=== PATIENT | male | born 1975 | race Caucasian/White ===

== ENCOUNTER 2016-12-06 14:34 | Emergency (ER) | payer SELFPAY ==
--- NOTE | 2016-12-06 14:40 | ER Document Report ---
ED Medical Screen (RME) - General Stated Complaint: RIGHT BREAST SWELLING Mode of Arrival: Ambulatory Information source: Patient Notes: Patient presents to the emergency department with right breast swelling. Reports history of mastitis in the right breast in September. No drainage. No fever/vomiting. TRAVEL OUTSIDE OF THE [place] IN LAST 30 DAYS: No - Related Data Allergies/Adverse Reactions: No Known Allergies Allergy (Verified 10/14/16 19:20) Past Medical History Past Surgical History: Reports: Hx Orthopedic Surgery - Right elbow - Immunizations Hx Diphtheria, Pertussis, Tetanus Vaccination: Yes - 2003
--- NOTE | 2016-12-06 15:47 | ER Document Report ---
Addendum entered and electronically signed by VENKAT MCDANIEL NP 12/06/16 20:54 : Course - Re-evaluation Re-evalutation: 12/06/16 20:53 pt care was never transferred to [facility] - Vital Signs Vital signs: Temp Pulse Resp BP Pulse Ox 98.1 F 74 18 131/73 H 97 12/06/16 14:39 12/06/16 14:39 12/06/16 14:39 12/06/16 14:39 12/06/16 20:47 - Laboratory Result Diagrams: 12/06/16 18:37 12/06/16 18:37 Laboratory results interpreted by me: 12/06/16 18:37 AST 75 H ALT 77 H Addendum entered and electronically signed by VENKAT MCDANIEL NP 12/06/16 20:51 : Discharge - Discharge Clinical Impression: right chest wall mass, erosion of fifth rib cartilage Condition: Stable Disposition: AGAINST MEDICAL ADVICE Instructions: Growth or Mass, Pending Workup ([facility]), Clindamycin ([facility]) Additional Instructions: go directly to [facility] ER tomorrow as you are planning with your chart and imaging on CD. return to our ER if you change your mind about the transfer to [facility] and admission. Prescriptions: Clindamycin HCl [Cleocin 150 mg Capsule] 300 mg PO TID #42 capsule Original Note: HPI - HPI Patient complains to provider of: right breast swelling Onset: Other - September Onset/Duration: Persistent, Worse Pain Level: 5 Context: 41-year-old smoker male was treated with antibiotics on October 14 for right breast erythema and swelling. The ultrasound showed no fluid collection. Was tx with septra and keflex and he stated the red area resolved, but continued to have indurated chest/breast tissue which has gotten larger since. He did not follow-up in the emergency department or see the general surgeon which was recommended. He comes back today because the indurated firm area is larger and he has a red tender area for 2 days that has recurred. No fever or chills. No history of MRSA. Denies IV drug use. Pt feels like it is pressing on his lungs. Associated Symptoms: None Exacerbated by: Movement - chest muscle Relieved by: Denies Similar symptoms previously: Yes Recently seen / treated by doctor: No - ROS ROS below otherwise negative: Yes Systems Reviewed and Negative: Yes All other systems reviewed and negative - DERM Skin Color: Normal <VENKAT MCDANIEL - Last Filed: 12/06/16 20:38> Past Medical History - General Information source: Patient - Social History Smoking Status: Current Every Day Smoker Chew tobacco use (# tins/day): No Frequency of alcohol use: None Drug Abuse: None Lives with: Family Family History: Reviewed & Not Pertinent Patient has suicidal ideation: No Patient has homicidal ideation: No - Medical History Medical History: Negative Past Surgical History: Reports: Hx Orthopedic Surgery - Right elbow - Immunizations Hx Diphtheria, Pertussis, Tetanus Vaccination: Yes - 2003 <VENKAT MCDANIEL - Last Filed: 12/06/16 20:38> Vertical Provider Document - CONSTITUTIONAL Agree With Documented VS: Yes Exam Limitations: No Limitations General Appearance: No Apparent Distress - INFECTION CONTROL TRAVEL OUTSIDE OF THE [place] IN LAST 30 DAYS: No - HEENT HEENT: Normocephalic - NECK Neck: Supple - RESPIRATORY Respiratory: Breath Sounds Normal, No Respiratory Distress O2 Sat by Pulse Oximetry: 97 - CARDIOVASCULAR Cardiovascular: Regular Rate, Regular Rhythm - GI/ABDOMEN Gastrointestinal: Abdomen Soft, Abdomen Non-Tender, No Organomegaly - BACK Back: Normal Inspection - MUSCULOSKELETAL/EXTREMETIES Musculoskeletal/Extremeties: KELLY FELTON - NEURO Level of Consciousness: Awake, Alert - DERM Adult Front & Back Diagram: 1 - induation 6 x 5 cm, red area inferior medial right breast 2 cm. Notes: 5 x 6 cm induration with 2 cm erythema inferior medial right breast/chest. <VENKAT MCDANIEL - Last Filed: 12/06/16 20:38> Course - Re-evaluation Re-evalutation: 12/06/16 16:[address] Medeiros who states it is okay to get a percent of the right breast. I also spoke to the radiologist Dr. Atkinson to look to the last ultrasound wanted to start with an ultrasound today. 12/06/16 17:36 dr gerber called and recommends an IV contrast CT of the chest with special attention to the pectoral muscle because she is concerned of extension sub Q abscess into the muscle. Consult with Dr. Manjarrez at this time who agrees with the CT scan. 12/06/16 19:[address] Naidu who recommends transfer to a tertiary center for cardiothoracic surgeon as indicated by the radiologist. The CT scan shows pleural thickening, 7 x 8 x 4 soft tissue fullness involving the pectoralis musculature as well as the anterior costochondral cartilage of anterior fifth rib with erosive changes of the cartilage. No defined abscess is identified. The ultrasound did show a 2.3 cm subcutaneous abscess with possible extension into the pectoral muscle. Call to light and in [place] for thoracic surgery consult. 12/06/16 19:40 Dr. Alex thoracic surgeon [facility] after discussion of the patient recommends IV clindamycin and medical admit with a surgical consult. She does not feel that he will need thoracic surgery based on the interpretation of the CT scan although she hasn't seen the films. 12/06/16 19:50 Dr. Garibay will accept the patient for admission and to the medical hospitalist invited to [place]. They will not have a bed available until tomorrow afternoon. 12/06/16 20:10 Dr. Fa[address]ner and Dr. Naidu were consulted and Dr. Bah is willing to look at the ultrasound and CT and go see the patient, he is seeing the patient at this time. 12/06/16 20:38 1 kg weight loss since 10-14. Dr. Naidu reccomends his transfer as discussed to [facility]. He advised to the pt that the recommended medical treatment is to be transferred to [facility] to be admitted by medicine dr. arenas with a [facility] thoracic surgical consult. He understands the risks of not being transferred and the possibility of not being admitted because he will have to go through the emergency department they want to sign out AGAINST MEDICAL ADVICE which Dr. Naidu adn dr. faulkner is aware of. I will give the patient copies of his records and imaging on CD because they state they will drive to [facility] ER tomorrow. Dr faulkner is talking with the pt at this time. - Vital Signs Vital signs: Temp Pulse Resp BP Pulse Ox 98.1 F 74 18 131/73 H 97 12/06/16 14:39 12/06/16 14:39 12/06/16 14:39 12/06/16 14:39 12/06/16 14:39 - Laboratory Result Diagrams: 12/06/16 18:37 12/06/16 18:37 - Transfer of Care Care transferred to following provider: Megan ZAPATA at 2014 <VENKAT MCDANIEL - Last Filed: 12/06/16 20:38> - Re-evaluation Re-evalutation: 12/06/16 20:49 I have seen and spoken with both the patient and his . They do not want to stay any longer in the emergency room. They are willing to wait for the end of the antibiotics. We have explained to them desire to transfer them for surgical evaluation in [place]. They say that they will drive up themselves tomorrow. We will give them a copy of all the labs, CT report and ultrasound. I have told them they're welcome to return to the emergency room for any further problems. - Vital Signs Vital signs: Temp Pulse Resp BP Pulse Ox 98.1 F 74 18 131/73 H 97 12/06/16 14:39 12/06/16 14:39 12/06/16 14:39 12/06/16 14:39 12/06/16 20:47 - Laboratory Result Diagrams: 12/06/16 18:37 12/06/16 18:37 Laboratory results interpreted by me: 12/06/16 18:37 AST 75 H ALT 77 H <MAYLIN FAULKNER - Last Filed: 12/06/16 20:50> Discharge <VENKAT MCDANIEL - Last Filed: 12/06/16 20:38> <MAYLIN FAULKNER - Last Filed: 12/06/16 20:50> - Discharge Clinical Impression: right chest wall mass, erosion of fifth rib cartilage Condition: Stable Disposition: AGAINST MEDICAL ADVICE Instructions: Growth or Mass, Pending Workup ([facility]) Additional Instructions: go directly to [facility] ER tomorrow as you are planning with your chart and imaging on CD. return to our ER if you change your mind about the transfer to [facility] and admission.
[2016-12-06 18:59] LABS: ABSOLUTE BASOPHILS # (AUTO) 0.1 10^3/uL (0.0-0.2); ABSOLUTE EOSINOPHILS # (AUTO) 0.3 10^3/uL (0.0-0.6); ABSOLUTE LYMPHOCYTES (AUTO) 2.1 10^3/uL (0.5-4.7); ABSOLUTE MONOCYTES (AUTO) 0.7 10^3/uL (0.1-1.4); ABSOLUTE NEUT (AUTO) 4.1 10^3/uL (1.7-8.2); BASOPHILS % (AUTO) 0.7 % (0-2); EOSINOPHILS % (AUTO) 3.7 % (0-6); HEMATOCRIT 48.5 % (37.9-51.0); HEMOGLOBIN 16.1 g/dL (13.5-17.0); HGB HCT DIFFERENCE -0.2; LYMPHOCYTES % (AUTO) 28.6 % (13-45); MEAN CORPUSCULAR HEMOGLOBIN 31.2 pg (27.0-33.4); MEAN CORPUSCULAR HGB CONC 33.2 g/dL (32.0-36.0); MEAN CORPUSCULAR VOLUME 94 fl (80-97); MONOCYTES % (AUTO) 10.3 % (3-13); RED BLOOD COUNT 5.18 10^6/uL (4.35-5.55); RED CELL DISTRIBUTION WIDTH 13.3 % (11.5-14.0); SEGMENTED NEUTROPHILS % (AUTO) 56.7 % (42-78); WHITE BLOOD COUNT 7.3 10^3/uL (4.0-10.5)
[2016-12-06 19:25] LABS: ALANINE AMINOTRANSFERASE 77 U/L (21-72); ALBUMIN 3.9 g/dL (3.5-5.0); ALKALINE PHOSPHATASE 81 U/L (38-126); ANION GAP 10 (5-19); ASPARTATE AMINO TRANSFERASE 75 U/L (17-59); BILIRUBIN,TOTAL 0.9 mg/dL (0.2-1.3); BLOOD UREA NITROGEN 8 mg/dL (7-20); CALCIUM 9.3 mg/dL (8.4-10.2); CARBON DIOXIDE 30 mmol/L (22-30); CHLORIDE 100 mmol/L (98-107); CREATININE RESULT 0.84 mg/dL (0.52-1.25); GLUCOSE 94 mg/dL (75-110); POTASSIUM 4.2 mmol/L (3.6-5.0); SODIUM 140.3 mmol/L (137-145)
[2016-12-06] MEDS ORDERED: CLINDAMYCIN 600 MG/D5W RTU 50 ML IV ONE (19:38)
[2016-12-06 21:05] VITALS: BP 132/68
--- NOTE | 2016-12-06 22:13 | PDOC CONSULTATION ---
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 The patient reports he was seen in September for right breast swelling. Imaging in September did not show any fluid collection. At that time he denies any redness, but his believes there may have been some redness. He was given antibiotics and instructed to follow-up in the ER in 2 days, as well as in 2 weeks with general surgery clinic. He neither followed up in the ER now or in general surgery clinic. He reports he did not follow-up for financial reasons. He reports that the area of swelling decreased in size following his ER visit September, getting as small as a golf ball. He reports that the area has increased in size and has patchy redness over it. He denies any drainage or discharge. He reports pain with direct palpation and pain when raising his right arm over his head. He reports that deep breathing causes chest pain, but he is not short of breath per se. He reports the area is very firm. He denies fevers, chills, nausea, vomiting, seizures, tremors, dizziness , lightheadedness, vision changes, sinus congestion, cough, leg swelling, itching, bowel changes. He denies any significant weight loss. Review of his weight compared to September reveals a 1 kg weight loss. He denies IV drug use. Past Medical History Psychiatric Medical History: Reports: Tobacco Dependency Past Surgical History Past Surgical History: Reports: Orthopedic Surgery - Right elbow Social History Lives with: Family Smoking Status: Current Every Day Smoker Frequency of Alcohol Use: None Drugs: None Hx Prescription Drug Abuse: No Family History Family History: Reviewed & Not Pertinent Parental Family History Reviewed: No Children Family History Reviewed: No Sibling(s) Family History Reviewed.: No Medication/Allergy Home Medications: No Home Medications 1 02/01/12 Cephalexin Monohydrate [Keflex 500 mg Capsule] 500 mg PO QID #28 capsule Oxycodone HCl/Acetaminophen [Percocet 5-325 mg Tablet] 1 - 2 tab PO ASDIR PRN # 15 tablet 10/14/16 Sulfamethoxazole/Trimethoprim [Sulfamethoxazole-Tmp Ds Tablet] 1 each PO BID # 14 tablet 10/14/16 Clindamycin HCl [Cleocin 150 mg Capsule] 300 mg PO TID #42 capsule 12/06/16 Allergies/Adverse Reactions: No Known Allergies Allergy (Verified 12/06/16 14:38) Review of Systems All systems: reviewed and no additional remarkable complaints except as stated Physical Exam Vital Signs: Temp Pulse Resp BP Pulse Ox 98 F 78 16 132/68 H 97 12/06/16 20:45 12/06/16 20:45 12/06/16 20:45 12/06/16 20:45 12/06/16 20:47 Intake & Output 12/05/16 12/06/16 12/07/16 06:59 06:59 06:59 Weight 71.2 kg General appearance: PRESENT: no acute distress Head exam: PRESENT: normocephalic Eye exam: PRESENT: EOMI Mouth exam: PRESENT: tongue midline Neck exam: ABSENT: JVD, lymphadenopathy, tenderness, thyromegaly Respiratory exam: PRESENT: clear to auscultation pallavi, other - The patient has a very firm right breast/chest wall mass approximately 6 cm in widest dimension. It is tender to palpate as is the surrounding chest wall. The soft tissue of the breast underlying the nipple areolar complex does not seem involved and feels to be distinct from this mass. There is patchy nonblanching erythema over the area. There is no discernible fluctuance or abscess by my exam. He has one enlarged palpable, mobile lymph node in the right axilla. Cardiovascular exam: PRESENT: RRR GI/Abdominal exam: PRESENT: soft. ABSENT: distended, tenderness Extremities exam: ABSENT: pedal edema, tenderness Neurological exam: PRESENT: alert, oriented to person, oriented to place, oriented to time, oriented to situation Psychiatric exam: PRESENT: appropriate affect, normal mood Skin exam: ABSENT: jaundice Results Laboratory Results: 12/06/16 18:37 12/06/16 18:37 12/06/16 12/06/16 12/06/16 08:50 18:37 18:37 WBC 7.3 RBC 5.18 Hgb 16.1 Hct 48.5 MCV 94 MCH 31.2 MCHC 33.2 RDW 13.3 Plt Count 240 Seg Neutrophils % 56.7 Lymphocytes % 28.6 Monocytes % 10.3 Eosinophils % 3.7 Basophils % 0.7 Absolute Neutrophils 4.1 Absolute Lymphocytes 2.1 Absolute Monocytes 0.7 Absolute Eosinophils 0.3 Absolute Basophils 0.1 Sodium Cancelled 140.3 Potassium Cancelled 4.2 Chloride Cancelled 100 Carbon Dioxide Cancelled 30 Anion Gap Cancelled 10 BUN Cancelled 8 Creatinine Cancelled 0.84 Est GFR ( Amer) Cancelled > 60 Est GFR (Non-Af Amer) Cancelled > 60 Glucose Cancelled 94 Calcium Cancelled 9.3 Total Bilirubin 0.9 AST 75 H ALT 77 H Alkaline Phosphatase 81 Total Protein 8.0 Albumin 3.9 Impressions: Chest X-Ray 12/06/16 16:12 IMPRESSION: NO SIGNIFICANT RADIOGRAPHIC FINDING IN THE CHEST. Chest CT 12/06/16 17:34 IMPRESSION: There is thickening of the right anterior pleura adjacent to a 7 x 8.5 x 4.2 cm area of soft tissue fullness and inflammatory changes involving the pectoralis musculature as well as the anterior costochondral cartilage of the anterior 5th rib, there are erosive changes of the cartilage. No defined rim enhancing abscess is identified. Consultation with cardiothoracic surgery is recommended. Status: Image reviewed by me Assessment & Plan - Diagnosis (1) Mass of right chest wall Is this a current diagnosis for this admission?: YesPlan: The patient has a very firm right chest wall mass. There is no discernible fluctuance or abscess by my exam. He has a normal white count without any left shift. He does not have fevers or chills. The area of erythema is minimal. He has a palpable lymph node in his right axilla. All these factors lead me for more concern for a neoplastic process then an infectious process. The ultrasound was questionable for an abscess, but the CT scan failed to identify any abscess and showed an erosive process involving the costochondral cartilage. Given the complexity of the situation with extension to the chest wall, I recommend cardiothoracic surgery consult. Transfer was facilitated by the ED provider, however bed availability is an issue. [facility] has accepted him, but has predicted a bed will not be available until sometime tomorrow. The patient does not want to wait. He did not anticipate any threat of neoplasm nor and extended stay in the ER much less and admission. He wants to see his children as well as take care of other social issues before admission. We discussed a variety of options in detail including the non- recommended courses of returning to the ER tomorrow versus striving to [facility] tomorrow versus biopsy in the ER tonight. Ultimately, he has decided to sign out AMA, and drive to [facility] tomorrow. He's been instructed to return here if for some reason he is not admitted to [facility]. He understands and promises to do so.
== END 2016-12-06 21:04 | disposition left against medical advice (07) ==
LOC: ER 14:34
DX: R22.2 Localized swelling, mass and lump, trunk (principal); M94.8X8 Other specified disorders of cartilage, other site; N63 Unspecified lump in breast; F17.210 Nicotine dependence, cigarettes, uncomplicated
CPT/HCPCS: 36415; 71020; 71260; 76642; 80053; 85025; 96365; 99284

== ENCOUNTER → 2017-02-13 | Outpatient (CLI) | payer MEDICAID | LOC: RAD 09:01 | PROVIDERS: ATTEND Surgery | DX: R22.2 Localized swelling, mass and lump, trunk (principal) | CPT/HCPCS: 71260 ==

== ENCOUNTER 2020-10-17 18:24 | Emergency (ER) | payer SELFPAY ==
[2020-10-17] MEDS ORDERED: NORMAL SALINE 1000 ML 1,000 ML IV ONE (18:30)
--- NOTE | 2020-10-17 18:34 | ER Document Report ---
ED Medical Screen (RME) - General Chief Complaint: Abscess Stated Complaint: ABSCESS/RIGHT HAND Time Seen by Provider: 10/17/20 18:29 Primary Care Provider: KAL MCMILLAN MD [Primary Care Provider] - Follow up as needed Mode of Arrival: Ambulatory Information source: Patient Notes: 45-year-old male presented to ED for a large necrotic abscess to the posterior right hand. There is redness up the arm. It is extremely swollen and painful. I have ordered blood urine and hand x-ray. He states it happened days ago and is gotten steadily worse. He is alert oriented respirations regular nonlabored speaking in full sentences. States he might have been bit by a spider 5 days ago but he is not sure because he woke up with something wrong with his hand. He states he has not been seen by anybody. I have greeted and performed a rapid initial assessment of this patient. A comprehensive ED assessment and evaluation of the patient, analysis of test results and completion of medical decision making process will be conducted by an additional ED providers. TRAVEL OUTSIDE OF THE [place] IN LAST 30 DAYS: No - Related Data Allergies/Adverse Reactions: No Known Allergies Allergy (Verified 12/06/16 14:38) Past Medical History Renal/ Medical History: Denies: Hx Peritoneal Dialysis Past Surgical History: Reports: Hx Orthopedic Surgery - Right elbow - Immunizations Hx Diphtheria, Pertussis, Tetanus Vaccination: Yes - 2003 Doctor's Discharge - Discharge Referrals: KAL MCMILLAN MD [Primary Care Provider] - Follow up as needed
[2020-10-17] MEDS ORDERED: VANCOMYCIN HCL INJ 1000 MG VIAL IV ONE (18:36)
--- NOTE | 2020-10-17 19:02 | RADIOLOGY REPORT (SQ) ---
EXAM DESCRIPTION: HAND RIGHT 3 VIEWS IMAGES COMPLETED DATE/TIME: 10/17/2020 6:54 pm REASON FOR STUDY: Infected hand redness swelling of the arm COMPARISON: None. EXAM PARAMETERS: NUMBER OF VIEWS: Three views. TECHNIQUE: AP, lateral and oblique radiographic images acquired of the right hand. LIMITATIONS: None. FINDINGS: MINERALIZATION: Normal. BONES: No acute fracture or dislocation. No worrisome bone lesions. No significant osteophytes. JOINTS: No erosions. No ld-articular osteopenia. No chondrocalcinosis. SOFT TISSUES: Extensive soft tissue swelling just medial to the 5th metacarpal. No foreign body pres ent. No gas present. OTHER: No other significant finding. IMPRESSION: Extensive soft tissue swelling. No bony findings peer TECHNICAL DOCUMENTATION: JOB ID: [id number] 2010 [employer]- All Rights Reserved Reading location - IP/workstation name: [email or web address]
[2020-10-17 19:05] LABS: ABSOLUTE EOSINOPHILS # (AUTO) 0.4 10^3/uL (0.0-0.6); ABSOLUTE LYMPHOCYTES (AUTO) 1.2 10^3/uL (0.5-4.7); ABSOLUTE MONOCYTES (AUTO) 0.6 10^3/uL (0.1-1.4); ABSOLUTE NEUT (AUTO) 4.9 10^3/uL (1.7-8.2); BASOPHILS % (AUTO) 0.3 % (0-2); EOSINOPHILS % (AUTO) 5.5 % (0-6); HEMOGLOBIN 13.6 g/dL (13.5-17.0); LYMPHOCYTES % (AUTO) 17.2 % (13-45); MEAN CORPUSCULAR VOLUME 88 fl (80-97); PLATELET COUNT 387 10^3/uL (150-450); RED BLOOD COUNT 4.53 10^6/uL (4.35-5.55); RED CELL DISTRIBUTION WIDTH 13.8 % (11.5-14.0); TOTAL CELLS COUNTED % (AUTO) 100 %; WHITE BLOOD COUNT 7.1 10^3/uL (4.0-10.5)
[2020-10-17 19:28] LABS: ALBUMIN 3.8 g/dL (3.5-5.0); ALKALINE PHOSPHATASE 56 U/L (38-126); ANION GAP 7 (5-19); ASPARTATE AMINO TRANSFERASE 67 U/L (17-59); BILIRUBIN,DIRECT 0.1 mg/dL (0.0-0.4); BILIRUBIN,TOTAL 0.5 mg/dL (0.2-1.3); BLOOD UREA NITROGEN 13 mg/dL (7-20); CALCIUM 9.6 mg/dL (8.4-10.2); CARBON DIOXIDE 32 mmol/L (22-30); CHLORIDE 99 mmol/L (98-107); GLUCOSE 131 mg/dL (75-110); POTASSIUM 4.2 mmol/L (3.6-5.0); TOTAL PROTEIN 7.7 g/dL (6.3-8.2)
--- NOTE | 2020-10-17 22:53 | ER Document Report ---
ED General - General Chief Complaint: Hand Swelling Stated Complaint: ABSCESS/RIGHT HAND Time Seen by Provider: 10/17/20 18:29 Primary Care Provider: KAL MCMILLAN MD [NO LOCAL MD] - Follow up as needed Mode of Arrival: Ambulatory Notes: Patient presents to the ER for evaluation of abscess to the right hand. The patient states he was cut by something while working outdoors. He denies fever. He denies nausea or vomiting. He denies feeling poorly. He denies IV drug use. He denies pain in the fingers or wrist. Nursing notes reviewed and past medical, social, and family histories reviewed and validated. TRAVEL OUTSIDE OF THE [place] IN LAST 30 DAYS: No - Related Data Allergies/Adverse Reactions: No Known Allergies Allergy (Verified 12/06/16 14:38) Past Medical History - General Information source: Patient - Social History Smoking Status: Current Every Day Smoker Cigarette use (# per day): Yes - 20 Chew tobacco use (# tins/day): No Smoking Education Provided: Yes Frequency of alcohol use: Occasional Drug Abuse: None Lives with: Alone Family History: Reviewed & Not Pertinent Patient has suicidal ideation: No Patient has homicidal ideation: No - Past Medical History Cardiac Medical History: Reports: None Pulmonary Medical History: Reports: None EENT Medical History: Reports: None Neurological Medical History: Reports: None Endocrine Medical History: Reports: None Renal/ Medical History: Reports: None. Denies: Hx Peritoneal Dialysis Malignancy Medical History: Reports None GI Medical History: Reports: None Musculoskeletal Medical History: Reports None Skin Medical History: Reports None Psychiatric Medical History: Reports: None Traumatic Medical History: Reports: None Infectious Medical History: Reports: None Past Surgical History: Reports: Hx Orthopedic Surgery - Right elbow - Immunizations Immunizations up to date: Yes Hx Diphtheria, Pertussis, Tetanus Vaccination: Yes - 2003 Review of Systems - Review of Systems Notes: Constitutional: Negative for fever. HENT: Negative for sore throat. Eyes: Negative for visual changes. Cardiovascular: Negative for chest pain. Respiratory: Negative for shortness of breath. Gastrointestinal: Negative for abdominal pain, vomiting or diarrhea. Genitourinary: Negative for dysuria. Musculoskeletal: Negative for back pain. Skin: Positive for abscess Neurological: Negative for headaches, weakness or numbness. 10 point ROS negative except as marked above and in HPI. Physical Exam - Vital signs Vitals: Temp Pulse Resp BP Pulse Ox 98.1 F 101 H 20 125/83 100 10/17/20 18:30 10/17/20 18:30 10/17/20 18:30 10/17/20 18:30 10/17/20 18:30 - Notes Notes: CONSTITUTIONAL: Well appearing in no acute distress SKIN: There is a 2 to 3 cm abscess over the medial aspect of the right hand. There is no streaking noted up the right arm. EYES: Extraocular movements are grossly intact, clear conjunctiva HENT: Normocephalic, atraumatic, moist mucus membranes NECK: No obvious swelling, normal range of motion PULMONARY: Normal chest rise and fall, no respiratory distress or stridor CARDIOVASCULAR: Regular rate, distal extremities are warm and well perfused NEUROLOGIC: Normal speech, moves all extremities MUSCULOSKELETAL: The patient has good and painless range of motion in the right fingers, wrist, elbow. PSYCHIATRIC: Normal mood and affect Course - Re-evaluation Re-evalutation: 10/17/20 22:50 Rechecked patient who has responded well to treatment in the ER. The triage note indicates that the patient has red streaking in his right arm. I appreciate no streaking at this time. I was able to drain and pack the abscess without difficulty. The patient will return in 2 days for a recheck. Discussed with patient: results, diagnosis, treatment plan, and need for follow-up. Return to the emergency department warnings were given. All questions and concerns were addressed. The plan is agreed with and understood. Patient is stable and ready for discharge. The triage note indicates that the patient has red streaking in his right arm. I appreciate no streaking at this time. I was able to drain and pack the absces s without difficulty. The patient will return in 2 days for a recheck. - Vital Signs Vital signs: Temp Pulse Resp BP Pulse Ox 98.1 F 101 H 20 125/83 100 10/17/20 20:00 10/17/20 18:30 10/17/20 18:30 10/17/20 18:30 10/17/20 18:30 - Laboratory Result Diagrams: 10/17/20 18:47 10/17/20 18:47 Laboratory results interpreted by me: 10/17/20 18:47 Carbon Dioxide 32 H Glucose 131 H AST 67 H ALT 58 H Procedures - Incision and Drainage Right Hand Time completed: 22:40 Type: Simple Anesthetic type: 1% Lidocaine mL's of anesthetic: 5 Blade size: 11 I&D procedure: Shurclens applied Incision Method: Incision made by scalpel Amount/type of drainage: Large amount of purulent discharge. Notes: 10/17/20 22:40 The wound was incised and packed with quarter inch iodoform gauze. The wound was then bandaged by the tech. Discharge - Discharge Clinical Impression: Abscess of right hand Condition: Good Disposition: HOME, SELF-CARE Instructions: Abscess ([facility]) Additional Instructions: Return to the emergency room in 2 days for packing removal. You can remove this at home your self if your condition is improving and you do not want to come back. Prescriptions: Sulfamethoxazole/Trimethoprim [Bactrim Ds Tablet] 1 each PO BID 10 Days #20 tablet Referrals: KAL MCMILLAN MD [NO LOCAL MD] - Follow up as needed
[2020-10-17 22:57] VITALS: BP 112/75
== END 2020-10-17 22:57 | disposition home or self-care (01) ==
LOC: ER 18:24
DX: L02.511 Cutaneous abscess of right hand (principal); R22.31 Localized swelling, mass and lump, right upper limb; F17.210 Nicotine dependence, cigarettes, uncomplicated
CPT/HCPCS: 99284; 96365; 96366; 36415; 87040; 87070; 87205; 85025; 87075; 87077; 80053; 73130; 10060; J7030; J3370; 87186